=== PATIENT | female | born 1980 | race Caucasian/White ===

== ENCOUNTER 2016-09-03 03:32 | Emergency (ER) | payer OTHER ==
[~2016-09-03 03:32] MED LIST: NORCO1 TA1 PO; SYNTHROID0.075 MG PO
[2016-09-03 04:28] LABS: BASOPHIL % 0.3 % (0-2); PLATELET COUNT 254 x10^3mcL (130-400)
[2016-09-03 04:39] LABS: CALCIUM 8.9 mg/dL (8.5-10.1); CARBON DIOXIDE 24.9 mmol/L (21-32); CHLORIDE SERUM 109 mmol/L (98-107); CREATININE SERUM 0.9 mg/dL (0.6-1.0); GFR1 > 60 mL/min; GLUCOSE SERUM 127 mg/dL (74-106); POTASSIUM SERUM 3.6 mmol/L (3.5-5.1); SODIUM SERUM 144 mmol/L (136-145)
[2016-09-03 04:55] LABS: ALBUMIN 3.4 g/dL (3.4-5.0); ALKALINE PHOSPHATASE 70 U/L (46-116); ALT/SGPT 32 U/L (14-59); AST/SGOT 22 U/L (15-37); LIPASE 225 IU/L (73-393); TOTAL PROTEIN, SERUM 6.7 g/dL (6.4-8.2)
[2016-09-03 09:16] VITALS: BP 115/91
== END 2016-09-03 09:16 | disposition home or self-care (01) ==
LOC: ED 03:32
PROVIDERS: Emergency Medicine
DX: N94.6 Dysmenorrhea, unspecified (principal); E07.9 Disorder of thyroid, unspecified; R10.30 Lower abdominal pain, unspecified
CPT/HCPCS: J2270; J2405; J7030; Q0092; Q9967

== ENCOUNTER 2016-09-23 18:31 | Emergency (ER) | payer OTHER ==
[~2016-09-23] VITALS: Ht 177.8 cm; Wt 107.5 kg
[2016-09-23 18:34] VITALS: BP 148/92
== END 2016-09-23 19:42 | disposition home or self-care (01) ==
LOC: ED 18:31
DX: F41.1 Generalized anxiety disorder (principal); F41.0 Panic disorder [episodic paroxysmal anxiety]

== ENCOUNTER 2016-11-29 19:37 | Emergency (ER) | payer OTHER ==
[~2016-11-29] VITALS: Ht 177.8 cm; Wt 107.5 kg
[2016-11-29 20:45] LABS: BASOPHIL % 0.1 % (0-2); PLATELET COUNT 163 x10^3mcL (130-400); RED CELL DISTRIBUTION WIDTH 13.5 % (11.5-14.5)
[2016-11-29 20:57] LABS: CALCIUM 8.2 mg/dL (8.5-10.1); CREATININE SERUM 1.1 mg/dL (0.6-1.0); POTASSIUM SERUM 3.3 mmol/L (3.5-5.1)
[2016-11-29 20:58] LABS: UA SPECIFIC GRAVITY >=1.030 (1.005-1.035); microscopic required? YES; urine erythrocyte 2+ (NEGATIVE)
[2016-11-29 21:12] LABS: ALBUMIN 3.5 g/dL (3.4-5.0); BILIRUBIN TOTAL 0.5 mg/dL (0.20-1.00); TOTAL PROTEIN, SERUM 7.8 g/dL (6.4-8.2)
[2016-11-29 22:41] VITALS: BP 93/62
== END 2016-11-29 22:45 | disposition home or self-care (01) ==
LOC: ED 19:37
PROVIDERS: Emergency Medicine
DX: N12 Tubulo-interstitial nephritis, not specified as acute or chronic (principal); E03.9 Hypothyroidism, unspecified
CPT/HCPCS: J0696; J1885; J2405; J7030

== ENCOUNTER 2017-03-19 15:04 | Emergency (ER) | payer OTHER ==
[~2017-03-19] VITALS: Ht 177.8 cm; Wt 99.9 kg
[2017-03-19 18:46] LABS: BASOPHIL % 0.4 % (0-2); PLATELET COUNT 247 x10^3mcL (130-400)
[2017-03-19 18:52] LABS: CARBON DIOXIDE 27.4 mmol/L (21-32); CHLORIDE SERUM 106 mmol/L (98-107); CREATININE SERUM 0.8 mg/dL (0.6-1.0); GFR1 > 60 mL/min; GLUCOSE SERUM 118 mg/dL (74-106); POTASSIUM SERUM 3.9 mmol/L (3.5-5.1); SODIUM SERUM 141 mmol/L (136-145)
[2017-03-19 18:57] LABS: ALBUMIN 3.4 g/dL (3.4-5.0); ALKALINE PHOSPHATASE 59 U/L (46-116); ALT/SGPT 36 U/L (14-59); AMYLASE 37 U/L (25-115); AST/SGOT 15 U/L (15-37); BILIRUBIN TOTAL 0.3 mg/dL (0.20-1.00); LIPASE 202 IU/L (73-393); TOTAL PROTEIN, SERUM 6.8 g/dL (6.4-8.2)
[2017-03-19 20:39] VITALS: BP 120/83
== END 2017-03-19 20:39 | disposition home or self-care (01) ==
LOC: ED 15:04
PROVIDERS: Specialist
DX: R10.13 Epigastric pain (principal); Z88.2 Allergy status to sulfonamides; Z98.51 Tubal ligation status
CPT/HCPCS: 36415; 83880; J1885; J3010; Q0092; Q0162

== ENCOUNTER 2018-12-27 20:09 | Emergency (ER) | payer OTHER ==
[~2018-12-27] VITALS: Ht 180.3 cm; Wt 93.9 kg
[2018-12-27 20:30] VITALS: Ht 180.3 cm; Wt 93.9 kg
[2018-12-27 21:33] LABS: CALCIUM 8.5 mg/dL (8.5-10.1); CARBON DIOXIDE 25.5 mmol/L (21-32); CHLORIDE SERUM 104 mmol/L (98-107); CREATININE SERUM 0.9 mg/dL (0.6-1.0); GFR1 > 60 mL/min; GLUCOSE SERUM 106 mg/dL (74-106); POTASSIUM SERUM 3.5 mmol/L (3.5-5.1); SODIUM SERUM 139 mmol/L (136-145)
[2018-12-27 22:30] VITALS: BP 106/72
== END 2018-12-27 22:30 | disposition home or self-care (01) ==
LOC: ED 20:09
PROVIDERS: Emergency Medicine
DX: R53.1 Weakness (principal); R42 Dizziness and giddiness; E86.0 Dehydration; N83.209 Unspecified ovarian cyst, unspecified side; Z88.2 Allergy status to sulfonamides; Z98.51 Tubal ligation status
CPT/HCPCS: J7030